=== PATIENT | female | born 1940 | race Caucasian/White ===

== ENCOUNTER → 2016-05-10 | Outpatient (CLI) | payer OTHER ==
[~2016-05-10] MED LIST: ALLEGRA PO; ASACOL400 MG PO; ASPIRIN PO; BUMEX PO; COUMADIN PO; FLEXERIL10 M1 PO; KCL PO; KEFLEX PO; LISINOPRIL PO; METAMUCIL; POSTURE600 MG PO; SYNTHROID PO; TYLENOL #3 PO; VYTORIN 10/80 T1 TAB PO; [UNRECOGNIZED DRUG - OTHER] PO
--- NOTE | ~2016-05-10 | MY11 ---
[facility] A Service of [facility] & [facility] RADIOLOGY TEXT RESULTS PATIENT: MICAELA BORRERO LOCATION: [facility] : 44 UNIT #: [id number] AGE: [address]: Renee Delgado MD SEX: F ORDER DR: [id number] [facility] [address] [place], [place] [address] [id number] O MR#: [id number] #: [id number] NAME: MICAELA BORRERO : 1940 SEX: F STUDY DATE/TIME: 05/10/2016 10:32 UNIT: [facility] ROOM: STUDY DESCRIPTION: MY Mammogram Screening Dig Alexander Attending Physician: Renee Delgado M.D. Ordering Physician: Renee Delgado M.D. Primary Care Physician: Renee Delgado M.D. MEDICAL IMAGING REPORT This report is preliminary unless electronic signature is present EXAM Digital screening mammogram, 05/10/2016. HISTORY 75-year-old woman; positive family history, sister, age 62. Interim weight gain indicated. Annual screening. COMPARISON STUDIES Mammograms date to 02/19/2007, with most recent 05/14/2014. FINDINGS Digital imaging of each breast was completed, utilizing screening protocol. Review incudes FDA-approved CAD device. Breast parenchyma is fatty replaced. Mild subareolar duct prominence is noted on the right and stable. I see no interval occurring breast mass. There are no suspicious microcalcifications and no architectural deformity. IMPRESSION Negative stable mammogram. Annual screening recommended. Patients over the age of 40 are entered into a reminder system with target due date for the next mammogram. A result letter will also be sent to the patient. BIRADS: 1 Negative Dictated by... Christiano Sutton M.D. THIS IS AN ELECTRONICALLY VERIFIED REPORT [facility] A Service of [facility] & [facility] RADIOLOGY TEXT RESULTS PATIENT: MICAELA BORRERO LOCATION: [facility] : 44 UNIT #: [id number] AGE: [address]: Renee Delgado MD SEX: F ORDER DR: Christiano Sutton M.D. at 05/10/2016 3:52 PM ELIZABETH/tayla TD: 05/10/2016 15:39 JOB #: [id number] MEDICAL IMAGING REPORT COPY
== END | disposition home or self-care (01) ==
LOC: CWCC 10:07
DX: Z12.31 Encounter for screening mammogram for malignant neoplasm of breast (principal); Z80.3 Family history of malignant neoplasm of breast
CPT/HCPCS: G0202